=== PATIENT | female | born 1955 | race Caucasian/White ===

== ENCOUNTER 2018-05-15 07:35 | Day surgery (SDC) | payer BC, MEDICARE, OTHER ==
--- NOTE | 2018-05-14 18:27 | History and Physical Report ---
DATE: 05/14/2018. CHIEF COMPLAINT AND HISTORY OF CHIEF COMPLAINT: This patient presents with a history of a postlaminectomy radiculopathy. A spinal opioid infusion system was implanted 05/08/2012. Over time the system appeared to be helping quite well. Over the last one to two years, the patient has used a number of different strategies which have helped reduce her pain. At this point, after careful titration, the infusion dose is down to saline, and she is here for removal of the device. PAST MEDICAL HISTORY: Noncontributory. PAST SURGICAL HISTORY: Gallbladder surgery, knee surgery, hysterectomy, appendectomy, lumbar spinal fusion, pump implant. MEDICATIONS ON ADMISSION: To be provided. ALLERGIES: Voltaren, Vicodin, ibuprofen, Tylenol with Codeine. SOCIAL HISTORY: Caffeine. FAMILY HISTORY: Diabetes, coronary vascular disease, hypertension, cancer. REVIEW OF SYSTEMS: The patient is appropriate and in no acute distress. The remainder of the systems review shows headaches, bladder dysfunction, degenerative arthritis. PHYSICAL EXAMINATION FROM CHART: General: Height is 5 feet, 4 inches and weight is 140 pounds.. Vital Signs: Not available. HEENT: Within normal limits. Lungs: Clear. Heart: Regular rate and rhythm. Abdomen: Nontender. Musculoskeletal: Examination of the musculoskeletal system shows the pump in the right posterior gluteal margin with the incisional site intact. The catheter incision approximates L3-4 and is noted to be intact with no breakdown. The underlying pain pattern is postlaminectomy, low back bilaterally. Lower extremity functionality is intact. No obvious motor or sensory abnormalities. Sensory landry are intact. Neurologic: Cranial nerves are intact. IMPRESSION: 1. POSTLUMBAR LAMINECTOMY SYNDROME, ICD-10 CODE M96.1. 2. RADICULOPATHY, ICD-10 CODE M54.16 AND M54.17. 3. IMPLANTED SPINAL OPIOID INFUSION SYSTEM PUMP AND CATHETER NONFUNCTIONAL. PLAN: The patient is here for removal of the device and catheter. The procedure will be considered outpatient; an overnight stay should not be necessary. JOB NUMBER: [id number] cc: Winston Uribe
[~2018-05-15 07:35] MED LIST: CEFAZOLIN 2 Gram 2 GM/50 ML BAG IVPB ONE; FAMOTIDINE 20MG TABLET PO ONE; MECLIZINE 25 MG TABLET PO ONE; METOCLOPRAMIDE 10 MG TABLET PO ONE
[2018-05-15] MEDS ORDERED: CEFAZOLIN 1G VIAL IM ONE (07:36)
[2018-05-15] MEDS ORDERED: FENTANYL PF 100MCG/2ML VIAL IV ONE (07:36)
[2018-05-15] MEDS ORDERED: MIDAZOLAM HCL 2MG/2ML VIAL IV ONE (07:36)
[2018-05-15] MEDS ORDERED: 0.9 % SODIUM CHLORIDE 10 ML VIAL IVP ONE (07:36)
[2018-05-15] MEDS ORDERED: LIDOCAINE 2% MDV (20MG/ML) 20ML VIAL IV ONE (07:36)
[2018-05-15] MEDS ORDERED: LIDOCAINE 1% W/EPI 1:200,000 MPF 30ML SQ ONE (07:36)
[2018-05-15] MEDS ORDERED: PROPOFOL 10 MG/ML VIAL IV ONE (07:36)
[2018-05-15] MEDS ORDERED: HYDROCODONE/APAP 7.5/325MG TABLET PO ONE (07:36)
--- NOTE | 2018-05-15 16:43 | Operative Note ---
DATE OF SURGERY: 05/15/18 PREOPERATIVE DIAGNOSES: 1. POST LUMBAR LAMINECTOMY SYNDROME, ICD-10 CODE = M96.1 WITH RADICULOPATHY, ICD -10 CODE = M54.16 AND M54.17. 2. IMPLANTED SPINAL INFUSION SYSTEM WITH SPINAL CATHETER NONFUNCTIONAL. OPERATION: 1. FLUOROSCOPICALLY-GUIDED INCISION, SUBCUTANEOUS DISSECTION, AND REMOVAL OF INDWELLING SPINAL CATHETER. 2. FLUOROSCOPICALLY-GUIDED INCISION, SUBCUTANEOUS DISSECTION, AND REMOVAL OF INDWELLING PROGRAMMABLE PUMP, RIGHT POSTERIOR GLUTEAL MARGIN. SURGEON: NICOLASA FLEMING D.O. ANESTHESIA: LOCAL SEDATION. ANESTHESIA PROVIDER: BENITA NEWMAN CRNA. INDICATION: This patient presents with a history of intractable post lumbar laminectomy radiculopathy. Due to the failure of therapy, a spinal cord infusion device infusing Hydromorphone was positioned to spinal catheter. Over a number of years, with the implant on 2011, the patient had good pain control but involved side-effects. Despite multiple measures, we are unable to control the side-effects. For that reason, she was slowly titrated down until the current point was saline only in the device. She is here for removal of the system. PROCEDURE: Intravenous line, vital sign monitoring, IV sedation, prepped, draped sterile technique. Patient position prone. Sterile prep, sterile technique. The midline incision at L3-4 was identified, marked, and infiltrated. Subcutaneous dissection conducted to the spinal catheter. The suture removed. The anchor removed. A pursestring suture of nonabsorbable placed over the site as the catheter was removed to stop CSF leak. At the right posterior gluteal margin pump pouch, skin infiltrated, incision made, and subcutaneous dissection was conducted to the pump. The pump was exteriorized and removed along with remaining port for the catheter. A Dacron sleeve was present. The Dacron sleeve was dissected but could not be completely removed because of intimately scarring with the skin. Antibiotic irrigation and Bovie for hemostasis. With the catheter removed intact, the tip radiopaque identified. The incisions were then closed using STRATAFIX suture 2-0 fascia, 3- 0 skin. Dermabond closure was placed. She was transported to the Recovery Room stable. No side-effects from the procedure or the sedation. When fully awake and alert, she was prepared for discharge. DISCHARGE INSTRUCTIONS: 1. Sites will remain clean and dry although the Dermabond will allow showering. Her activity should stay controlled until she is seen in the office in 7-10 days. The office will contact the patient to set the appointment up over the next 24-48 hours. 2. Standard medications resumed including the antibiotic Levaquin 500 mg once a day for 14 days. 3. All other instructions provided with numbers to contact and problems given. She will be seen in the office. cc: Dr. Bedolla JOB NUMBER: [id number] MTDD
== END 2018-05-15 10:57 | disposition home or self-care (01) ==
LOC: SUR 07:35
PROVIDERS: ATTEND Pain Medicine Interventional Pain Medicine
DX: M96.1 Postlaminectomy syndrome, not elsewhere classified (principal); M54.16 Radiculopathy, lumbar region; M54.17 Radiculopathy, lumbosacral region; G47.419 Narcolepsy without cataplexy; G25.81 Restless legs syndrome; K21.9 Gastro-esophageal reflux disease without esophagitis
CPT/HCPCS: J0690